=== PATIENT | female | born 1985 | race Caucasian/White ===

== ENCOUNTER → 2016-10-13 | Outpatient (CLI) | payer OTHER | END | disposition home or self-care (01) | LOC: ECT 09:30 | DX: F33.2 Major depressive disorder, recurrent severe without psychotic features (principal); F41.1 Generalized anxiety disorder ==

== ENCOUNTER 2016-11-14 06:04 | Outpatient (RCR) | payer OTHER ==
[~2016-11-14] VITALS: Ht 157.5 cm; Wt 52.5 kg
[2016-11-14] MEDS ORDERED: Midazolam 2mg/2ml Inj ONE (06:05)
[2016-11-14] MEDS ORDERED: Methohexital Sodium Syr 100mg/10ml IVP ONE (06:05)
[2016-11-14] MEDS ORDERED: Succinylcholine 20mg/ml 10ml vial ONE (06:05)
[2016-11-14] MEDS ORDERED: NS 550ML IV ONE (06:05)
[2016-11-14] MEDS ORDERED: Ketorolac 30mg Inj ONE (06:05)
[2016-11-16] MEDS ORDERED: Midazolam 2mg/2ml Inj ONE (06:05)
[2016-11-16] MEDS ORDERED: Succinylcholine 20mg/ml 10ml vial ONE (06:05)
[2016-11-16] MEDS ORDERED: Ketorolac 60mg Inj ONE (06:05)
[2016-11-16] MEDS ORDERED: Methohexital Sodium Syr 100mg/10ml IVP ONE (06:05)
[2016-11-16] MEDS ORDERED: NS 550ML IV ONE (06:05)
[2016-11-18] MEDS ORDERED: Methohexital Sodium Syr 100mg/10ml IVP ONE (22:37)
[2016-11-18] MEDS ORDERED: Ketorolac 30mg Inj ONE (22:37)
[2016-11-18] MEDS ORDERED: NS 550ML IV ONE (22:37)
[2016-11-18] MEDS ORDERED: Midazolam 2mg/2ml Inj ONE (22:37)
[2016-11-18] MEDS ORDERED: Succinylcholine 20mg/ml 10ml vial ONE (22:37)
[2016-11-21] MEDS ORDERED: Succinylcholine 20mg/ml 10ml vial ONE (12:31)
[2016-11-21] MEDS ORDERED: NS 550ML IV ONE (12:31)
[2016-11-21] MEDS ORDERED: Ketorolac 30mg Inj ONE (12:31)
[2016-11-21] MEDS ORDERED: Midazolam 2mg/2ml Inj ONE (12:31)
[2016-11-21] MEDS ORDERED: Methohexital Sodium Syr 100mg/10ml IVP ONE (12:31)
== END 2016-11-22 | disposition home or self-care (01) ==
LOC: ECT 06:04
DX: F33.2 Major depressive disorder, recurrent severe without psychotic features (principal); F41.1 Generalized anxiety disorder; Z88.0 Allergy status to penicillin
CPT/HCPCS: 90870; J0330; J1885; J2250; J7040

== ENCOUNTER 2016-11-23 11:19 | Outpatient (RCR) | payer OTHER ==
[~2016-11-23] VITALS: Ht 157.5 cm; Wt 52.2 kg
[2016-11-23] MEDS ORDERED: Ketorolac 30mg Inj ONE (11:20)
[2016-11-23] MEDS ORDERED: Succinylcholine 20mg/ml 10ml vial ONE ×4 (11:20)
[2016-11-23] MEDS ORDERED: Ketamine 500mg Inj ONE ×3 (11:20)
[2016-11-23] MEDS ORDERED: Methohexital Sodium Syr 100mg/10ml IVP ONE ×2 (11:20)
[2016-11-23] MEDS ORDERED: NS 550ML IV ONE ×4 (11:20)
[2016-11-23] MEDS ORDERED: Ketorolac 60mg Inj ONE ×3 (11:20)
[2016-11-23] MEDS ORDERED: Midazolam 2mg/2ml Inj ONE ×4 (11:20)
[2016-11-25] MEDS ORDERED: Succinylcholine 20mg/ml 10ml vial ONE (11:20)
[2016-11-25] MEDS ORDERED: Methohexital Sodium Syr 100mg/10ml IVP ONE (11:20)
[2016-11-25] MEDS ORDERED: Midazolam 2mg/2ml Inj ONE (11:20)
[2016-11-25] MEDS ORDERED: Ketorolac 60mg Inj ONE (11:20)
[2016-11-25] MEDS ORDERED: NS 550ML IV ONE (11:20)
[2016-11-28] MEDS ORDERED: Midazolam 2mg/2ml Inj ONE (11:20)
[2016-11-28] MEDS ORDERED: Succinylcholine 20mg/ml 10ml vial ONE (11:20)
[2016-11-28] MEDS ORDERED: Methohexital Sodium Syr 100mg/10ml IVP ONE (11:20)
[2016-11-28] MEDS ORDERED: NS 550ML IV ONE (11:20)
[2016-11-28] MEDS ORDERED: Atropine Sulfate 0.4mg/ml inj IVP PRN (18:00)
[2016-11-30] MEDS ORDERED: NS 550ML IV ONE (11:20)
[2016-11-30] MEDS ORDERED: Succinylcholine 20mg/ml 10ml vial ONE (11:20)
[2016-11-30] MEDS ORDERED: Midazolam 2mg/2ml Inj ONE (11:20)
[2016-11-30] MEDS ORDERED: Ketorolac 60mg Inj ONE (11:20)
[2016-11-30] MEDS ORDERED: Methohexital Sodium Syr 100mg/10ml IVP ONE (11:20)
[2016-12-02] MEDS ORDERED: Atropine Sulfate 0.4mg/ml inj IVP PRN (08:28)
[2016-12-02] MEDS ORDERED: Methohexital Sodium Syr 100mg/10ml IVP ONE (11:20)
[2016-12-02] MEDS ORDERED: Ketorolac 60mg Inj ONE (11:20)
[2016-12-02] MEDS ORDERED: Succinylcholine 20mg/ml 10ml vial ONE (11:20)
[2016-12-02] MEDS ORDERED: NS 550ML IV ONE (11:20)
[2016-12-02] MEDS ORDERED: Midazolam 2mg/2ml Inj ONE (11:20)
[2016-12-09] MEDS ORDERED: Ketorolac 60mg Inj ONE (08:00)
[2016-12-09] MEDS ORDERED: NS 550ML IV ONE (08:00)
[2016-12-09] MEDS ORDERED: Midazolam 2mg/2ml Inj ONE (08:00)
[2016-12-09] MEDS ORDERED: Succinylcholine 20mg/ml 10ml vial ONE (08:00)
[2016-12-09] MEDS ORDERED: Ketamine 500mg Inj ONE (08:00)
[2016-12-09] MEDS ORDERED: Midazolam 2mg/2ml Inj IVP PRN (08:11)
[2016-12-12] MEDS ORDERED: Atropine Sulfate 0.4mg/ml inj IVP PRN (10:37)
[2016-12-12] MEDS ORDERED: Ketamine 500mg Inj ONE (11:20)
[2016-12-12] MEDS ORDERED: NS 550ML IV ONE (11:20)
[2016-12-12] MEDS ORDERED: Midazolam 2mg/2ml Inj ONE (11:20)
[2016-12-12] MEDS ORDERED: Succinylcholine 20mg/ml 10ml vial ONE (11:20)
[2016-12-12] MEDS ORDERED: Ketorolac 60mg Inj ONE (11:20)
[2016-12-19] MEDS ORDERED: NS 550ML IV ONE (11:20)
[2016-12-19] MEDS ORDERED: Methohexital Sodium 500mg Vial IVP ONE (11:20)
[2016-12-19] MEDS ORDERED: Ketorolac 60mg Inj ONE (11:20)
[2016-12-19] MEDS ORDERED: Succinylcholine 20mg/ml 10ml vial ONE (11:20)
[2016-12-19] MEDS ORDERED: Midazolam 2mg/2ml Inj ONE (11:20)
[2016-12-23] MEDS ORDERED: Ketamine 500mg Inj ONE (09:03)
[2016-12-23] MEDS ORDERED: NS 550ML IV ONE (09:03)
[2016-12-23] MEDS ORDERED: Ketorolac 60mg Inj ONE (09:03)
[2016-12-23] MEDS ORDERED: Midazolam 2mg/2ml Inj ONE (09:03)
[2016-12-23] MEDS ORDERED: Succinylcholine 20mg/ml 10ml vial ONE (09:03)
== END 2016-12-23 | disposition home or self-care (01) ==
LOC: ECT 11:19
DX: F33.2 Major depressive disorder, recurrent severe without psychotic features (principal); Z88.0 Allergy status to penicillin
CPT/HCPCS: 90870; J0330; J1885; J2250; J3490; J7040

== ENCOUNTER 2016-12-28 06:31 | Outpatient (RCR) | payer OTHER ==
[~2016-12-28] VITALS: Ht 157.5 cm; Wt 52.2 kg
[2016-12-28] MEDS ORDERED: Midazolam 2mg/2ml Inj ONE (06:32)
[2016-12-28] MEDS ORDERED: Ketamine 500mg Inj ONE (06:32)
[2016-12-28] MEDS ORDERED: Ketorolac 30mg Inj ONE (06:32)
[2016-12-28] MEDS ORDERED: Succinylcholine 20mg/ml 10ml vial ONE (06:32)
[2016-12-28] MEDS ORDERED: NS 550ML IV ONE (06:32)
[2017-01-11] MEDS ORDERED: NS 550ML IV ONE (06:00)
[2017-01-11] MEDS ORDERED: Ketamine 500mg Inj ONE (06:00)
[2017-01-11] MEDS ORDERED: Midazolam 2mg/2ml Inj ONE (06:00)
[2017-01-11] MEDS ORDERED: Succinylcholine 20mg/ml 10ml vial ONE (06:00)
[2017-01-11] MEDS ORDERED: Ketorolac 60mg Inj ONE (06:00)
== END 2017-01-22 | disposition home or self-care (01) ==
LOC: ECT 06:31
DX: F33.2 Major depressive disorder, recurrent severe without psychotic features (principal)
CPT/HCPCS: 90870; J0330; J1885; J2250; J3490; J7040

== ENCOUNTER 2017-01-27 05:06 | Outpatient (RCR) | payer OTHER ==
[~2017-01-27] VITALS: Ht 157.5 cm; Wt 52.2 kg
[2017-01-27] MEDS ORDERED: Midazolam 2mg/2ml Inj ONE (05:07)
[2017-01-27] MEDS ORDERED: Ketamine 500mg Inj ONE (05:07)
[2017-01-27] MEDS ORDERED: Succinylcholine 20mg/ml 10ml vial ONE (05:07)
[2017-01-27] MEDS ORDERED: NS 550ML IV ONE (05:07)
[2017-01-27] MEDS ORDERED: Ketorolac 60mg Inj ONE (05:07)
[2017-02-17] MEDS ORDERED: NS 550ML IV ONE (07:00)
[2017-02-17] MEDS ORDERED: Succinylcholine 20mg/ml 10ml vial ONE (07:00)
[2017-02-17] MEDS ORDERED: Midazolam 2mg/2ml Inj ONE (07:00)
[2017-02-17] MEDS ORDERED: Ketamine 500mg Inj ONE (07:00)
[2017-02-17] MEDS ORDERED: Ketorolac 60mg Inj ONE (07:00)
== END 2017-02-22 | disposition home or self-care (01) ==
LOC: ECT 05:06
DX: F33.2 Major depressive disorder, recurrent severe without psychotic features (principal)
CPT/HCPCS: 90870; J0330; J2250; J3490; J7040

== ENCOUNTER 2017-03-17 05:18 | Outpatient (RCR) | payer OTHER ==
[~2017-03-17] VITALS: Ht 157.5 cm; Wt 52.2 kg
[2017-03-17] MEDS ORDERED: Midazolam 2mg/2ml Inj ONE (05:19)
[2017-03-17] MEDS ORDERED: NS 550ML IV ONE (05:19)
[2017-03-17] MEDS ORDERED: Succinylcholine 20mg/ml 10ml vial ONE (05:19)
[2017-03-17] MEDS ORDERED: Ketorolac 60mg Inj ONE (05:19)
[2017-03-17] MEDS ORDERED: Ketamine 500mg Inj ONE (05:19)
== END 2017-03-24 | disposition home or self-care (01) ==
LOC: ECT 05:18
DX: F33.2 Major depressive disorder, recurrent severe without psychotic features (principal)
CPT/HCPCS: 90870; J0330; J2250; J3490; J7040

== ENCOUNTER 2017-04-12 08:55 | Outpatient (RCR) | payer OTHER ==
[~2017-04-12] VITALS: Ht 157.5 cm; Wt 52.2 kg
[2017-04-12] MEDS ORDERED: NS 550ML IV ONE (08:56)
[2017-04-12] MEDS ORDERED: Succinylcholine 20mg/ml 10ml vial ONE (08:56)
[2017-04-12] MEDS ORDERED: Ketorolac 60mg Inj ONE (08:56)
[2017-04-12] MEDS ORDERED: Ketamine 500mg Inj ONE (08:56)
[2017-04-12] MEDS ORDERED: Midazolam 2mg/2ml Inj ONE (08:56)
== END 2017-04-24 | disposition home or self-care (01) ==
LOC: ECT 08:55
DX: F33.2 Major depressive disorder, recurrent severe without psychotic features (principal)
CPT/HCPCS: 90870; J0330; J2250; J3490; J7040

== ENCOUNTER 2017-05-10 06:58 | Outpatient (RCR) | payer OTHER ==
[~2017-05-10] VITALS: Ht 157.5 cm; Wt 52.2 kg
[2017-05-10] MEDS ORDERED: Succinylcholine 20mg/ml 10ml vial ONE (06:59)
[2017-05-10] MEDS ORDERED: Ketorolac 60mg Inj ONE (06:59)
[2017-05-10] MEDS ORDERED: Midazolam 2mg/2ml Inj ONE (06:59)
[2017-05-10] MEDS ORDERED: NS 550ML IV ONE (06:59)
[2017-05-10] MEDS ORDERED: Ketamine 500mg Inj ONE (06:59)
[2017-05-24] MEDS ORDERED: Midazolam 2mg/2ml Inj ONE (07:00)
[2017-05-24] MEDS ORDERED: NS 550ML IV ONE (07:00)
[2017-05-24] MEDS ORDERED: Ketorolac 60mg Inj ONE (07:00)
[2017-05-24] MEDS ORDERED: Succinylcholine 20mg/ml 10ml vial ONE (07:00)
[2017-05-24] MEDS ORDERED: Ketamine 500mg Inj ONE (07:00)
[2017-05-24] MEDS ORDERED: Atropine Sulfate 0.4mg/ml inj IVP PRN (09:41)
== END 2017-05-25 | disposition home or self-care (01) ==
LOC: ECT 06:58
DX: F33.2 Major depressive disorder, recurrent severe without psychotic features (principal)
CPT/HCPCS: 90870; J0330; J2250; J3490; J7040

== ENCOUNTER 2017-06-07 08:46 | Outpatient (RCR) | payer OTHER ==
[~2017-06-07] VITALS: Ht 33 cm; Wt 0.5 kg
[~2017-06-07 08:46] MED LIST: Sodium Chloride 500ML 500 ML IV ONE
[2017-06-07] MEDS ORDERED: Succinylcholine 20mg/ml 10ml vial ONE (08:47)
[2017-06-07] MEDS ORDERED: Ketorolac 60mg Inj ONE (08:47)
[2017-06-07] MEDS ORDERED: Ketamine 500mg Inj ONE (08:47)
[2017-06-07] MEDS ORDERED: NS 500ML IV ONE (08:47)
[2017-06-07] MEDS ORDERED: Midazolam 2mg/2ml Inj ONE (08:47)
== END 2017-06-24 | disposition home or self-care (01) ==
LOC: ECT 08:46
DX: F33.2 Major depressive disorder, recurrent severe without psychotic features (principal)
CPT/HCPCS: 90870; J0330; J2250; J3490; J7040

== ENCOUNTER 2017-06-26 07:36 | Outpatient (RCR) | payer OTHER ==
[~2017-06-26] VITALS: Ht 30.5 cm; Wt 0.5 kg
[2017-06-26] MEDS ORDERED: Ketorolac 60mg Inj ONE ×2 (07:37)
[2017-06-26] MEDS ORDERED: NS 500ML IV ONE ×2 (07:37)
[2017-06-26] MEDS ORDERED: Midazolam 2mg/2ml Inj ONE ×2 (07:37)
[2017-06-26] MEDS ORDERED: Succinylcholine 20mg/ml 10ml vial ONE ×2 (07:37)
[2017-06-26] MEDS ORDERED: Ketamine 500mg Inj ONE ×2 (07:37)
[2017-06-26] MEDS ORDERED: Sodium Chloride 500ML 500 ML IV ONE (09:26)
[2017-07-17 08:05] VITALS: BP 132/90
[2017-07-17] MEDS ORDERED: Sodium Chloride 500ML 500 ML IV ONE (08:16)
[2017-07-17 08:20] VITALS: BP 131/89
[2017-07-17 08:25] VITALS: BP 139/76
[2017-07-17 08:30] VITALS: BP 151/89
[2017-07-17 08:35] VITALS: BP 145/92
== END 2017-07-25 | disposition home or self-care (01) ==
LOC: ECT 07:36
DX: F33.2 Major depressive disorder, recurrent severe without psychotic features (principal); Z88.0 Allergy status to penicillin
CPT/HCPCS: 90870; J0330; J2250; J3490; J7040

== ENCOUNTER 2017-08-09 07:06 | Outpatient (RCR) | payer OTHER ==
[~2017-08-09] VITALS: Ht 157.5 cm; Wt 52.2 kg
[2017-08-09] MEDS ORDERED: Midazolam 2mg/2ml Inj ONE (07:07)
[2017-08-09] MEDS ORDERED: Ketamine 500mg Inj ONE (07:07)
[2017-08-09] MEDS ORDERED: Ketorolac 60mg Inj ONE (07:07)
[2017-08-09] MEDS ORDERED: Succinylcholine 20mg/ml 10ml vial ONE (07:07)
[2017-08-09] MEDS ORDERED: NS 500ML ONE (07:07)
[2017-08-09 08:50] VITALS: BP 121/92
[2017-08-09] MEDS ORDERED: Sodium Chloride 500ML 500 ML IV ONE (09:05)
[2017-08-09 09:10] VITALS: BP 134/77
[2017-08-09 09:15] VITALS: BP 140/78
[2017-08-09 09:20] VITALS: BP 148/94
[2017-08-09 09:25] VITALS: BP 140/85
== END 2017-08-24 | disposition home or self-care (01) ==
LOC: ECT 07:06
DX: F33.2 Major depressive disorder, recurrent severe without psychotic features (principal)
CPT/HCPCS: 90870; J0330; J2250; J3490; J7040

== ENCOUNTER 2017-09-06 07:15 | Outpatient (RCR) | payer OTHER ==
[~2017-09-06] VITALS: Ht 157.5 cm; Wt 52.2 kg
[2017-09-06] MEDS ORDERED: Succinylcholine 20mg/ml 10ml vial ONE (07:16)
[2017-09-06] MEDS ORDERED: Methohexital Sodium Syr 100mg/10ml IVP ONE (07:16)
[2017-09-06] MEDS ORDERED: NS 500ML ONE (07:16)
[2017-09-06] MEDS ORDERED: Midazolam 2mg/2ml Inj ONE (07:16)
[2017-09-06] MEDS ORDERED: Ketorolac 60mg Inj ONE (07:16)
[2017-09-06 08:40] VITALS: BP 118/80
[2017-09-06] MEDS ORDERED: Sodium Chloride 500ML 500 ML IV ONE (08:57)
[2017-09-06 09:00] VITALS: BP 122/84
[2017-09-06 09:05] VITALS: BP 123/73
[2017-09-06 09:10] VITALS: BP 123/78
[2017-09-06 09:15] VITALS: BP 119/72
[2017-09-06 09:20] VITALS: BP 119/70
== END 2017-09-24 | disposition home or self-care (01) ==
LOC: ECT 07:15
DX: F33.2 Major depressive disorder, recurrent severe without psychotic features (principal)
CPT/HCPCS: 90870; J0330; J2250; J7040

== ENCOUNTER 2017-10-04 06:14 | Outpatient (RCR) | payer OTHER ==
[~2017-10-04] VITALS: Ht 157.5 cm; Wt 52.2 kg
[2017-10-04] MEDS ORDERED: Ketamine 500mg Inj ONE (06:15)
[2017-10-04] MEDS ORDERED: Midazolam 2mg/2ml Inj ONE (06:15)
[2017-10-04] MEDS ORDERED: Ketorolac 60mg Inj ONE (06:15)
[2017-10-04] MEDS ORDERED: NS 500ML ONE (06:15)
[2017-10-04] MEDS ORDERED: Succinylcholine 20mg/ml 10ml vial ONE (06:15)
[2017-10-09] MEDS ORDERED: Midazolam 2mg/2ml Inj ONE (08:00)
[2017-10-09] MEDS ORDERED: NS 500ML ONE (08:00)
[2017-10-09] MEDS ORDERED: Succinylcholine 20mg/ml 10ml vial ONE (08:00)
[2017-10-09] MEDS ORDERED: Ketorolac 60mg Inj ONE (08:00)
[2017-10-09] MEDS ORDERED: Ketamine 500mg Inj ONE (08:00)
[2017-10-09 08:05] VITALS: BP 112/79
[2017-10-09] MEDS ORDERED: Sodium Chloride 500ML 500 ML IV ONE (08:25)
[2017-10-09 08:30] VITALS: BP 135/74
[2017-10-09 08:35] VITALS: BP 124/80
[2017-10-09 08:40] VITALS: BP 121/72
[2017-10-09 08:45] VITALS: BP 122/70
[2017-10-09 08:50] VITALS: BP 124/72
[2017-10-16 07:40] VITALS: BP 120/88
[2017-10-16 07:55] VITALS: BP 127/73
[2017-10-16] MEDS ORDERED: Sodium Chloride 500ML 500 ML IV ONE (07:55)
[2017-10-16 08:00] VITALS: BP 127/74
[2017-10-16 08:05] VITALS: BP 141/79
[2017-10-16 08:09] VITALS: BP 133/80
[2017-10-23] MEDS ORDERED: Ketamine 500mg Inj ONE (06:00)
[2017-10-23] MEDS ORDERED: NS 500ML ONE (06:00)
[2017-10-23] MEDS ORDERED: Midazolam 2mg/2ml Inj ONE (06:00)
[2017-10-23] MEDS ORDERED: Ketorolac 60mg Inj ONE (06:00)
[2017-10-23] MEDS ORDERED: Succinylcholine 20mg/ml 10ml vial ONE (06:00)
== END 2017-10-25 | disposition home or self-care (01) ==
LOC: ECT 06:14
DX: F33.2 Major depressive disorder, recurrent severe without psychotic features (principal); F41.1 Generalized anxiety disorder
CPT/HCPCS: 90870; J0330; J2250; J3490; J7040